=== PATIENT | female | born 1945 | race Caucasian/White ===

== ENCOUNTER 2018-11-28 20:52 | Emergency (ER) | payer MEDICARE, OTHER, SELFPAY ==
[2018-11-28 20:58] VITALS: BP 204/96; PULSE 61; RESP 14; TEMP 36.6; O2SAT 99; BMI 27.4
--- NOTE | 2018-11-28 21:15 | PC.NURSE ---
Patient states she has had a frontal sinus type headache since approx 1729 today. She is visiting from [place] and doesn't know if maybe she is having allergies. After her headache started, she took her blood pressure at home which was in the 160s. She took it again 45 min later and it had gotten higher. Came to ED for blood pressure check. Has hx of a stable brain aneurysm in the [place]. No neurological deficits are noted upon assessment.
[2018-11-28 21:39] VITALS: BP 160/93; PULSE 57; RESP 17; O2SAT 100
--- NOTE | 2018-11-28 21:53 | ED.GENADULT ---
HPI - General Adult General Chief complaint: Hypertension Stated complaint: elevated BP Time Seen by Provider: 11/28/18 21:39 Source: patient Mode of arrival: ambulatory Limitations: no limitations History of Present Illness HPI narrative: The patient presents with a frontal headache. The headache is primarily around her eyebrow area, but she has pressure in the face. She also has pressure in her ears. She takes Flonase daily for allergies. She is not taking medications for the headache. She has a history of an aneurysm, the aneurysm has been stable for the past 5 years with no size change. She last received MRI February 2018. The aneurysm is in the [place], she has no posterior pain. She has no eye changes, she denies sore throat, she has no cough or fever. She is on medications for hypertension. It is noted that the blood pressure was elevated upon arrival, but is improved without intervention. She has no associated chest pain or dyspnea. Her blood pressure improved to 160 systolic without intervention. She is normally running about 145 on monitoring at home. Related Data Previous Rx's Medication Instructions Recorded amoxicillin 500 mg PO TID 10 Days #30 cap 11/28/18 Review of Systems Constitutional Reports as per HPI, Denies body ache(s), Denies chills, Denies excessive sweating, Reports headache(s), Denies lethargy, Denies malaise and Denies poor appetite Eyes Denies eye discharge, Denies irritation and Denies loss of vision ENT Ears, Nose, Mouth, and Throat: Reports facial pain, Reports headache(s), Denies neck pain and Denies sore throat Cardiovascular Denies chest pain, Denies irregular heart rhythm, Denies lightheadedness, Denies palpitations, Denies dyspnea, Denies dyspnea on exertion and Denies orthopnea Respiratory Denies cough, Denies dyspnea, Denies dyspnea on exertion and Denies wheezing Musculoskeletal Denies neck pain Neurologic Reports headache(s) and Denies loss of vision Endocrine Denies excessive sweating and Denies palpitations Allergic/Immunologic Denies wheezing [facility] Medical History (Updated 11/28/18 @ 22:01 by Anthony Pandya MD) Cerebral aneurysm (Acute) Hypertension (Acute) Social History Smoking Status: Never smoker Social History Smoking Status: Never smoker Exam Initial Vital Signs Initial Vital Signs: Vital Signs Temperature 97.8 F 11/28/18 20:58 Pulse Rate 61 11/28/18 20:58 Respiratory Rate 14 11/28/18 20:58 Blood Pressure 204/96 H 11/28/18 20:58 Pulse Oximetry 99 11/28/18 20:58 Const General: cooperative and well developed Nutritional Appearance: well nourished Orientation: alert, awake, oriented x3 and not confused HENMT Head: normocephalic, atraumatic and No scalp tenderness Ears: external ears normal and TM abnormal (Both TMs are retracted but clear) Nose: external nose normal and No nasal discharge Face and sinus: face symmetric, tenderness (Bilaterally over the ethmoid and maxillary sinuses.) and No dry mucous membranes Mouth: moist mucous membranes Teeth and gingiva: dentition normal Throat: tonsils normal and uvula midline Eyes General: appearance normal, both eyes and all related structures Eyelids: eyelids normal Conjunctivae: conjunctivae normal Sclera: sclerae normal Pupils: PERRL EOM: EOM intact bilaterally Neck Neck: normal visual inspection, trachea midline, No lymphadenopathy and No midline deformity Chest Chest: normal inspection of the chest Resp Effort & Inspection: normal respiratory effort and able to speak in complete sentences Auscultation: clear to auscultation bilaterally, no rales, no rhonchi and no wheezes Cardio Rate: regular rate Rhythm: regular rhythm Heart Sounds: no click, no gallops, no murmurs and no rubs Pulses: normal peripheral pulses Course Course Narrative: The patient has sinusitis, likely exacerbated by her allergies. She is advised to continue the Flonase, but add Mucinex. I will prescribe amoxicillin. Vital Signs - 8 hr 11/28/18 20:58 11/28/18 21:39 Temperature 97.8 F Pulse Rate 61 57 L Respiratory Rate 14 17 Blood Pressure 204/96 H Blood Pressure [Right Arm] 160/93 H Pulse Oximetry 99 100 Discharge Plan Departure Patient Disposition: Home Clinical Impression: Acute pansinusitis, unspecified Qualifiers: Recurrence: not specified as recurrent Qualified Code(s): J01.40 - Acute pansinusitis, unspecified Hypertension Qualifiers: Hypertension type: essential hypertension Qualified Code(s): I10 - Essential (primary) hypertension Instructions: DI for Sinusitis Activity Restrictions/Additional Instructions: Amoxicillin 3 times daily as prescribed. Use Flonase as you are previously instructed. Mucinex is available [id number]. I would recommend obtaining this started tonight. Follow the package instructions. Also, Tylenol 2 tabs every 4 hours as needed for pain. Return to the ER as needed. Prescriptions: New amoxicillin 500 mg capsule 500 mg PO TID 10 Days Qty: 30 RF: 0
[2018-11-28] MEDS: ACETAMINOPHEN 325 MG TABLET 650 MG PO (21:55)
[2018-11-28] MEDS: AMOXICILLIN 250 MG CAPSULE 500 MG PO (21:55)
[2018-11-28 22:05] VITALS: BP 143/87; PULSE 55; RESP 11
[2018-11-28 22:13] VITALS: PULSE 58; RESP 12; O2SAT 100
== END 2018-11-28 22:14 | disposition home or self-care (01) ==
PROVIDERS: Emergency Provider Emergency Medicine
DX: J01.40 Acute pansinusitis, unspecified (principal); I10 Essential (primary) hypertension
CPT/HCPCS: 93005; 93010; 99282; 99283